=== PATIENT | male | born 1975 | race Caucasian/White ===

== ENCOUNTER → 2017-03-13 | Outpatient (CLI) | payer BC ==
[~2017-03-13] MED LIST: FLUO20CA20 PO; FLX10 PO
[2017-03-13 17:04] LABS: LYME DISEASE AB IGG NEG (NEG); LYME DISEASE AB IGM NEG (NEG)
== END | disposition home or self-care (01) ==
LOC: C.LABSPEC 15:19
PROVIDERS: ATTEND Internal Medicine
DX: Z20.828 Contact with and (suspected) exposure to other viral communicable diseases (principal)

== ENCOUNTER → 2017-07-04 | Outpatient (CLI) | payer BC ==
--- NOTE | 2017-07-04 13:34 | DIAGNOSTIC IMAGING REPORT ---
LEFT KNEE 1 OR 2 VIEWS ROUTINE HISTORY: 41 years-old Male FALL, BURSITIS L KNEE COMPARISON: Right knee radiographs 04/15/2016 TECHNIQUE: 2 views of the left knee FINDINGS: There is mild medial joint space narrowing. No acute fracture or dislocation is identified. Enthesopathy noted at the patellar insertion site of the quadriceps tendon with calcification measuring 6 mm in length. There is a small joint effusion. There is a moderate-sized prepatellar collection present measuring up to 1.8 x 5.9 cm with adjacent mild soft tissue swelling. IMPRESSION: 1. Mild medial joint space narrowing and quadriceps enthesopathic spurring without acute bony abnormality. 2. Moderate-sized prepatellar collection is seen measuring up to 1.8 x 5.9 cm, suspicious for prepatellar bursitis. 3. Small joint effusion. The above report was generated using voice recognition software. It may contain grammatical, syntax or spelling errors. Electronically signed by: William Hansen M.D. 07/04/2017 1:33 PM Dictated Date/Time: 07/04/2017 1:26 PM
== END | disposition home or self-care (01) ==
LOC: C.RAD 12:54
PROVIDERS: ATTEND Internal Medicine
DX: M70.42 Prepatellar bursitis, left knee (principal); W19.XXXA Unspecified fall, initial encounter; M25.462 Effusion, left knee